=== PATIENT | female | born 1995 | race Hispanic/Latino ===

== ENCOUNTER 2017-01-20 18:00 | Emergency (ER) | payer OTHER ==
[~2017-01-20] VITALS: Ht 154.9 cm; Wt 53.5 kg
[2017-01-20 18:12] VITALS: BP 148/108; PULSE 111; RESP 22; O2SAT 98
--- NOTE | 2017-01-20 21:22 | ED.REPORT ---
HPI-General Illness Date of Service Jan 20, 2017 ED Provider: Dr. Braxton Rosario MD A 21 year old female is accompanied to the ED by her family who is currently expressing concern over meth abuse. Family reports that they are seeking resources for the patient's meth use. Patient reports that she smokes meth and last used just prior to arrival (approx. 4 hours). She also reports regular THC and EtOH use. Associated symptoms include hallucinations and insomnia for the past 24 hours. She denies any homicidal or suicidal ideation. Patient denies any withdrawal symptoms at this time. She denies any other medical conditions or medications. Patient is currently requesting discharge. Nursing Notes Stated Complaint: INTOXICATED Chief Complaint: Substance Abuse Nursing Notes Reviewed: Yes Allergies: Coded Allergies: No Known Allergies (Unverified , 01/20/17) General Time Seen by MD: 21:21 Chief Complaint Other (Meth Use) Hx Obtained From: Patient Arrived By: Walk-in Sudden in Onset?: No Onset Occurred: 1 - 4 hours ago Context of Onset: Amphetamine use Symptom Duration: Since onset Additional Notes: Hallucinations Insomnia Pertinent Negative: Pt denies other symptoms Recent Healthcare: No recent doctor visit, No recent hospitalization Past Medical History Past Medical History 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 Smoking History Unknown if Ever Smoker Social History Alcohol Use: "Social" Drug Use: Meth, THC Other Social History: Good social support, Local resident Ambulatory Status Independent Review of Systems Primary complaint at this time is meth use. Full Review of Systems Constitutional: Denies: Chills, Fever Respiratory: Denies: Shortness of breath GI: Denies: Nausea, Vomiting Psychiatric: Reports: Hallucinations, auditory, Hallucinations, visual, Insomnia (24 hours), Denies: Homicidal ideation, Suicidal ideation Complete sys rev & neg: except as marked. Physical Exam Vital Signs Vital Signs Date Time Temp Pulse Resp B/P Pulse Ox O2 Delivery O2 Flow Rate FiO2 01/20/17 21:55 37 103 20 137/95 96 Room Air 01/20/17 18:12 37 111 22 148/108 98 Room Air Initial VS: Reviewed Extremities: Vascular intact, Neuro intact, No swelling, No tenderness Skin: Warm, Dry, No cyanosis Neurologic: Alert, Oriented, Nonfocal Psychiatric: Mood/affect normal, Behavior normal, Normal thought content General/Constitutional: Awake, Alert Head / Eyes: Atraumatic, Normocephalic HEAD/EYES: Pupils 3 mm ENT: Atraumatic, Airway patent, Mucous membranes moist Neck: Atraumatic, Supple Respiratory / Chest: Atraumatic, Breath sounds NL, Breath sounds = bilat, No respiratory distress Cardiovascular: Heart rate NL, Regular rhythm, Heart sounds NL, No gallop, No murmurs, No rubs Abdomen: Atraumatic, Soft, Non-tender Interpretation & Diagnostics Lab Results Interpretation Test 01/20/17 20:00 Hold Urine Received (Received) Lab Results Interpretation: Drug Screen: Positive for methamphetamines Point of Care Testing: Preg test neg - urine Drug Screen / Level Interp Urine positive THC, Urine pos amphetamines Re-Eval/Medical Decision Time of Eval: 21:34 Patient Status: Condition improved Re-Evaluation/Progress Note: Patient is informed of the plan to discharge with follow up at a treatment location. Counseled Regarding: Diagnosis, Lab results, Need for follow-up, When/why to return to ED Discharge & Departure Primary Impression: Substance abuse Disposition: Home Discharge Condition All VS Reviewed: Yes Condition: Improved Patient Instructions: Methamphetamine Abuse (ED) Additional Instructions: Your emergency department evaluation today included interview and examination. At this point we do not find any acute medical problem. It is vital though that you get help to keep from using methamphetamine. Stay away from the pupil used with get rid of your paraphernalia. Follow up with one of the referred services in your discharge instructions. ( [facility]/ [facility]) Please return to the ED if you develop hallucinations, thoughts of harming yourself or others or any other concerning signs or symptoms. Referrals: Aliyah Marte MD (PCP) [facility] Facundo Attestation Portions of this note were transcribed by Eugenio Rivera. I, Dr. Rosario personally performed the history, physical exam and medical decision-making; I reviewed and confirmed the accuracy of the information in the transcribed note. Signed by: Facundo Sepulveda, 01/20/17 [id number]. copies to: Aliyah Marte MD, Donald L MD Jan 20, 2017 21:22 EUGENIO RIVERA Jan 20, 2017 21:31
[2017-01-20 21:55] VITALS: BP 137/95; PULSE 103; RESP 20; O2SAT 96
== END 2017-01-20 21:56 | disposition home or self-care (01) ==
LOC: SED 18:00
DX: F15.182 Other stimulant abuse with stimulant-induced sleep disorder (principal); F12.10 Cannabis abuse, uncomplicated; F10.10 Alcohol abuse, uncomplicated